=== PATIENT | male | born 1995 | race Caucasian/White ===

== ENCOUNTER 2020-12-24 12:11 | Emergency (ER) | payer BC, SELFPAY ==
[2020-12-24 12:23] VITALS: BP 121/72; PULSE 64; RESP 16; TEMP 37.6; O2SAT 100
--- NOTE | 2020-12-24 13:11 | ED.GENADULT ---
HPI - General Adult General Chief complaint: Unspecified Stated complaint: Brain fog Time Seen by Provider: 12/24/20 13:00 Source: patient and RN notes reviewed Mode of arrival: ambulatory Limitations: no limitations History of Present Illness HPI narrative: 25-year-old male presents with complaints of brain fog for the past 4-5 days. Leonel reports having a hard time thinking, focusing, and disassociation of thoughts. Lorazepam (last today) with some relief. ?Leonel reports being depressed without suicidal or homicidal ideation. Denies auditory or visual hallucination. ?Denies ill exposures. ?Denies abdominal constipation, diarrhea, nausea and vomiting. Tolerating intake well. Denies trauma to head, syncopal episodes, altered vision, altered speech, confusion, or seizure activity. ?Denies headache, numbness or tingling in extremities. Denies chest pain or dyspnea. ?Denies sweats, fever, or chills. Remains active. ?The patient reports he has not been diagnosed with COVID-19. The patient reports receiving two [employer] COVID-19 vaccines. ?The patient reports he is not waiting for the results of a COVID-19 lab test. ?The patient reports he does not have a new or worsening cough. ?The patient reports he does not have any rhinorrhea, congestion, loss of taste or smell. Denies recent traveling. Denies concerns for COVID-19 or exposures. ?At this time, the patient is not suspected of having COVID-19. Some parts of this dictation were generated by voice recognition software and may contain typographical and/or grammatical inaccuracies. Related Data Home Medications Medication Instructions Recorded Confirmed allopurinol 12/24/20 colchicine mg PO 12/24/20 lorazepam [Ativan] 12/24/20 meloxicam 7.5 mg PO DAILY 12/24/20 12/24/20 Allergies Allergy/AdvReac Type Severity Reaction Status Date / Time tramadol AdvReac Nausea and Verified 12/24/20 12:20 Vomiting Review of Systems Review of Systems: Narrative: CONSTITUTIONAL: Denies fever, chills, sweats. Complaints of hard time thinking, focusing, and disassociation of thoughts. EYES: Denies visual changes, redness, discharge. ENT: Denies rhinorrhea, congestion, sore throat, otalgia. CARDIOVASCULAR: Denies chest pain, palpitations, edema. RESPIRATORY: Denies dyspnea, wheezing, cough. GASTROINTESTINAL: Denies abdominal pain, diarrhea, nausea, vomiting. ? GENITOURINARY: Denies dysuria, hematuria, abnormal discharge. SKIN: Denies lesions, itching, drainage. MUSCULOSKELETAL: Denies acute back pain, joint pain, or myalgia. NEUROLOGIC: Denies numbness or focal weakness. PSYCHIATRIC: Complains of being worried about illnesses, stress, being depressed. Denies anxiety, suicidal, or homicidal ideation. All systems reviewed & are unremarkable except as noted in HPI and below. [facility] Past Medical History Medical History (Updated 12/25/20 @ 00:01 by Sara Meza) Asthma Childhood Gout Under the care of a neurologist to rule out neuropathy per Leonel Shoulder fracture, left Surgical History Surgical History (Updated 12/24/20 @ 13:19 by OSVALDO Baker) History of shoulder surgery Left shoulder Family History Family History (Updated 12/24/20 @ 13:19 by OSVALDO Baker) Father Diabetes mellitus Mother Parathyroid abnormality Grandparent Diabetes mellitus Social History Social History (Updated 12/31/20 @ 17:58 by OSVALDO Baker) Smoking packs per day: 1 Smoking cigarettes per day: 20.0 Years smoked: 7 Smoking pack-years: 7.00 Smoking status: Current some day smoker Tobacco type: cigarettes Second hand tobacco smoke exposure: No Alcohol intake: never Living arrangements: with family Occupation/Education: occupation Gender identity (if verbalized by the patient): Male Sexual Orientation (if Verbalized by the Patient): Straight or Heterosexual Comments At time of signature, agree with the nurse past medical, s
[2020-12-24 13:18] LABS: Glucose Point of Care 101 mg/dl (65-105)
== END 2020-12-24 13:38 | disposition home or self-care (01) ==
PROVIDERS: Emergency Provider Nurse Practitioner Family
DX: F41.9 Anxiety disorder, unspecified (principal); F17.210 Nicotine dependence, cigarettes, uncomplicated; M10.9 Gout, unspecified
CPT/HCPCS: 81003; 82948; 99212; G0463

== ENCOUNTER 2021-01-30 02:09 | Emergency (ER) | payer BC, SELFPAY ==
--- NOTE | ~2021-01-30 | XR_ITS ---
EXAMINATION: XR chest 1V portable DATE: 01/30/2021 03:04 INDICATION: Cough and fever TECHNIQUE: frontal view of the chest was obtained. COMPARISON: None FINDINGS: The lungs are clear with no focal airspace opacities, pulmonary edema, pleural effusion or pneumothor ax. The cardiomediastinal silhouette is normal. Visualized bones and soft tissues are unremarkable. IMPRESSION: 1. Normal chest radiograph. Reviewed, dictated and finalized at location A. IMPRESSION: 1. Normal chest radiograph.
[2021-01-30 02:16] VITALS: BP 131/88; PULSE 100; RESP 19; TEMP 37; O2SAT 98
--- NOTE | 2021-01-30 02:50 | ED.GENADULT ---
HPI - General Adult General Chief complaint: Fever Stated complaint: epigastric pain Time Seen by Provider: 01/30/21 02:33 History of Present Illness HPI narrative: Patient is 25-year-old gentleman who presents the emergency department with chief complaint of fever. The patient reports that he has been having a fever for the last week he has been vaccinated for Covid and has had a Covid test in the last week he was also checked for strep and he says this was negative. The patient reports that he had a little bit of a cough is also had some discomfort in his epigastric region. Patient states that it is worse whenever he coughs and improved with rest. Patient states that he was concerned because he still was running a fever and not feeling very well today the patient states he feels very thirsty even though he has been drinking plenty of fluids. Related Data Home Medications Medication Instructions Recorded Confirmed allopurinol 12/24/20 colchicine mg PO 12/24/20 lorazepam [Ativan] 12/24/20 meloxicam 7.5 mg PO DAILY 12/24/20 12/24/20 Allergies Allergy/AdvReac Type Severity Reaction Status Date / Time tramadol AdvReac Nausea and Verified 01/30/21 02:26 Vomiting Review of Systems Review of Systems: Narrative: A 10 system review of systems was completed on the patient and is negative except for what is stated in the HPI. Nursing and ancillary documentation was reviewed. [facility] Past Medical History Medical History Asthma Childhood Gout Under the care of a neurologist to rule out neuropathy per Leonel Shoulder fracture, left Surgical History Surgical History History of shoulder surgery Left shoulder Family History Family History Father Diabetes mellitus Mother Parathyroid abnormality Grandparent Diabetes mellitus Social History Social History Smoking packs per day: 1 Smoking cigarettes per day: 20.0 Years smoked: 7 Smoking pack-years: 7.00 Smoking status: Current some day smoker Tobacco type: cigarettes Second hand tobacco smoke exposure: No Alcohol intake: never Gender identity (if verbalized by the patient): Male Exam Narrative: Exam Narrative: GENERAL: Well-appearing, well-nourished, and in no acute distress. HEAD: Normocephalic, atraumatic. EYES: PERRLA and EOMI. ENT: Nares clear, no rhinorrhea or epistaxis. Mucous membranes moist. NECK: Supple. CHEST: Clear to auscultation. No respiratory distress. HEART: Regular rate and rhythm. No murmur heard. Normal peripheral pulses. ABDOMEN: Soft, nontender, nondistended, normal active bowel sounds. EXTREMITIES: Normal range of motion. No edema. SKIN: Warm, dry, no rash. NEURO: No focal deficits. Alert and oriented x3. PSYCH: Normal mood and affect. Course Vital Signs Vital signs: Vital Signs Temperature 37.0 C 01/30/21 02:16 Pulse Rate 100 01/30/21 02:16 Respiratory Rate 19 01/30/21 02:16 Blood Pressure 131/88 01/30/21 02:16 Pulse Oximetry 98 01/30/21 02:16 Temperature 37.0 C 01/30/21 02:16 Pulse Rate 76 01/30/21 04:51 Respiratory Rate 14 01/30/21 04:51 Blood Pressure 101/71 01/30/21 04:51 Pulse Oximetry 97 01/30/21 04:51 Medical Decision Making Vital Signs Vital Signs: Vital Signs Temperature 37.0 C 01/30/21 02:16 Pulse Rate 100 01/30/21 02:16 Respiratory Rate 19 01/30/21 02:16 Blood Pressure 131/88 01/30/21 02:16 Pulse Oximetry 98 01/30/21 02:16 Temperature 37.0 C 01/30/21 02:16 Pulse Rate 76 01/30/21 04:51 Respiratory Rate 14 01/30/21 04:51 Blood Pressure 101/71 01/30/21 04:51 Pulse Oximetry 97 01/30/21 04:51 Lab Data Result diagrams: 01/30/21 03:04 01/30/21 0
[2021-01-30] MEDS: SODIUM CHLORIDE 0.9% IV 1,000 ML 999 ML IV CONT (03:00)
[2021-01-30] MEDS: KETOROLAC 30 MG/ML VIAL (*BKC) IV PUSH (03:02)
[2021-01-30] MEDS: ONDANSETRON INJ 4 MG/2 ML VIAL IV PUSH (03:02)
[2021-01-30 03:23] LABS: Basophils Percent Auto 0.2 % (0.2-1.2); Eosinophils Percent Auto 0.2 % (0-4.4); Hematocrit 42.3 % (42.0-52.0); Hemoglobin 15.2 g/dL (14.0-18.0); Immature Granulocyte Absolute 0.05 K/mm3 (0.00-0.031); Immature Granulocyte Percent A 0.4 % (0-0.5); Lymphocytes Absolute Auto 1.06 K/mm3 (0.9-3.2); Lymphocytes Percent Auto 8.6 % (18.3-44.2); Mean Corpuscular HGB Conc 35.9 g/dl (32-36); Mean Corpuscular Hemoglobin 30.1 pg (26-34); Mean Corpuscular Volume 83.8 fl (80-100); Mean Platelet Volume 9.2 fl (7.4-10.4); Monocytes Absolute Auto 1.1 K/mm3 (0.1-0.6); Monocytes Percent Auto 9.1 % (2.6-8.5); Neutrophils Percent Auto 81.5 % (45.5-73.1); Platelet Count Result 222 k/mm3 (150-375); Red Blood Count 5.05 M/mm3 (4.6-6.20); Red Cell Distribution Width 11.9 % (11.5-14.5); White Blood Count 12.3 K/mm3 (4.5-10.0)
[2021-01-30 03:34] LABS: Alanine Aminotransferase 46 U/L (4-50); Albumin Level 4.5 g/dL (3.5-5.1); Alkaline Phosphatase 44 U/L (38-126); Anion Gap 11 mmol/L (8-16); Aspartate Amino Transferase 50 U/L (17-59); Bilirubin,Total 1.2 mg/dL (0.2-1.3); Blood Urea Nitrogen 7 mg/dL (9-20); Calcium 9.2 mg/dL (8.4-10.2); Carbon Dioxide 24 mmol/L (22-30); Chloride 102 mmol/L (98-107); Estimated CRCL calculation 207 ml/min; Estimated Glomerular Filt Rate > 60; Glucose 152 mg/dL (65-110); Lactic Acid Reflex 1.4 mmol/L (0.7-2.1); Potassium 3.1 mmol/L (3.4-5.0); Sodium 137 mmol/L (137-145)
[2021-01-30 03:38] LABS: CRP 1.9 mg/dL (<1.0)
[2021-01-30 04:33] LABS: Add Urine Microscopic? YES; Appearance Urine Clear (Clear); Bacteria Urine Trace /hpf; Bilirubin Urine Negative (Negative); Blood Urine Negative (Negative); Color Urine Yellow (Yellow); Glucose Urine UA Negative (Negative); Ketones Urine Negative (Negative); Leukocyte Esterase Ur Negative LEU/UL (Negative); Mucus Urine Rare /lpf; Nitrate Urine Negative (Negative); Protein Urine Negative (Negative); Specific Grav Ur 1.018 (1.001-1.035); Squamous Epithelial Cell Urine Rare /hpf (Few); WBC Urine 0-3 /hpf
[2021-01-30 04:51] VITALS: BP 101/71; PULSE 76; RESP 14; O2SAT 97
[2021-01-30 05:33] VITALS: BP 107/68; PULSE 70; RESP 14; O2SAT 97
== END 2021-01-30 05:38 | disposition home or self-care (01) ==
PROVIDERS: Emergency Provider Emergency Medicine
DX: B34.9 Viral infection, unspecified (principal); J45.909 Unspecified asthma, uncomplicated; M10.9 Gout, unspecified; F17.210 Nicotine dependence, cigarettes, uncomplicated
CPT/HCPCS: 36415; 71045; 80053; 81001; 83605; 85025; 86140; 87081; 87804; 87880; 96361; 96374; 96375; 99284; J1885; J2405; J7030

== ENCOUNTER → 2021-04-12 09:15 | Outpatient (CLI) | payer BC, SELFPAY ==
--- NOTE | ~2021-04-12 | US_ITS ---
US scrotum doppler INDICATION: Left testicular pain and swelling TECHNIQUE: Testicular sonogram utilizing grayscale and color Doppler FINDINGS: The testes are normal in size and appearance. No focal lesions are seen. The right testes measures 4.5 x 2.4 x 3.2 cm centimeters, and the left testis measures 4.2 x 2.6 x 3 cm cm. There is n ormal vascular flow to both testes. There is a 2 mm left epididymal cyst. There are trace hydroceles. There is a left varicocele. IMPRESSION: 1. Left varicocele. 2: Small hydroceles. Reviewed, dictated and finalized at location A.
== END ==
PROVIDERS: Visit Provider Family Medicine
DX: N50.819 Testicular pain, unspecified (principal); I08.3 Combined rheumatic disorders of mitral, aortic and tricuspid valves; N43.3 Hydrocele, unspecified
CPT/HCPCS: 76870; 93976

== ENCOUNTER 2021-10-10 08:22 | Emergency (ER) | payer BC, SELFPAY ==
[2021-10-10] VITALS (7 sets, daily range): BP systolic 112–147; BP diastolic 70–85; PULSE 81–101; RESP 16–22; TEMP 36.7–38; O2SAT 98–100
--- NOTE | ~2021-10-10 | XR_ITS ---
EXAMINATION: XR chest 1V portable EXAM DATE: 10/10/2021 08:43 INDICATION: Chest pain, COVID. TECHNIQUE: Portable AP frontal chest x-ray was obtained. Comparison is made to prior examination from 01/30/2021. FINDINGS: The lungs are clear. There are no pleural effusions. The cardiomediastinal silhouette is within normal limits. There is no pneumothorax suspected. The bones and soft tissues are unremarkab le. IMPRESSION: No acute cardiopulmonary findings. Reviewed, dictated and finalized at location D.
--- NOTE | ~2021-10-10 | CT_ITS ---
EXAMINATION: CTA chest PE protocol DATE: 10/10/2021 09:50 INDICATION: Chest pain and COVID TECHNIQUE: Computed tomography (CT) pulmonary angiogram of the chest was performed with 100 mL Omnipa que-350 intravenous contrast. Additional 3D reconstructions utilizing coronal maximum intensity proje ction (MIP) were performed. Automated exposure control and iterative reconstruction technique were em ployed. The dose-length product was 302.91 mGy-cm. COMPARISON: None FINDINGS: There is severe stenosis of the left subclavian artery were passed between the clavicle and left firs t rib with injected contrast extending through numerous chest wall and paraspinal collaterals. This l ikely contributes to the still good but suboptimal contrast opacification of the of the pulmonary art eries. There is mild streak artifact from dense contrast in the superior vena cava and right atrium. Mild scattered respiratory motion artifact which does not significantly limit evaluation. No pulmonar y embolism. No pneumonia, pulmonary edema or other pulmonary infiltrates. No pleural effusion or pneu mothorax. Heart size is normal. No pericardial effusion. Thoracic aorta is normal in caliber with no dissection. There is a triangular configuration of mixed fat and soft tissue density in the anterior mediastinum consistent with small amount of residual thymic tissue. No pathologically enlarged thorac ic lymphadenopathy. Visualized upper abdomen and bones are unremarkable. IMPRESSION: 1. No pulmonary embolism or other acute cardiopulmonary disease. 2. Severe stenosis of the left subclavian artery secondary to extrinsic compression from the clavicle and anterior first rib with the arms in the elevated position results in chest wall and paraspinal c ollaterals. Reviewed, dictated and finalized at location A. IMPRESSION: 1. No pulmonary embolism or other acute cardiopulmonary disease. 2. Severe stenosis of the left subclavian artery secondary to extrinsic jossue deric from the clavicle and anterior first rib with the arms in the elevated pos ition results in chest wall and paraspinal collaterals.
--- NOTE | 2021-10-10 08:26 | ECG_ITS ---
Measurements Intervals [place] Rate: 86 P: 66 [place]: 150 QRS: 72 QRSD: 90 T: 44 QT: 303 QTc: 363 Interpretive Statements SINUS RHYTHM WITH SINUS ARRHYTHMIA BORDERLINE ECG NO PREVIOUS ECG AVAILABLE FOR COMPARISON Electronically Signed On 10-10-2021 17:14:28 CDT by Roberto Vargas M.D.
[2021-10-10] MEDS: ASPIRIN 81 MG CHEWABLE TABLET 324 MG PO (08:54)
[2021-10-10 08:55] LABS: Basophils Percent Auto 0.1 % (0.2-1.2); Hematocrit 40.5 % (42.0-52.0); Hemoglobin 14.3 g/dL (14.0-18.0); Immature Granulocyte Absolute 0.04 K/mm3 (0.00-0.031); Immature Granulocyte Percent A 0.4 % (0-0.5); Lymphocytes Absolute Auto 1.63 K/mm3 (0.9-3.2); Lymphocytes Percent Auto 15.1 % (18.3-44.2); Mean Corpuscular HGB Conc 35.3 g/dl (32-36); Mean Corpuscular Volume 87.9 fl (80-100); Mean Platelet Volume 9.3 fl (7.4-10.4); Monocytes Absolute Auto 1.2 K/mm3 (0.1-0.6); Monocytes Percent Auto 10.8 % (2.6-8.5); Neutrophils Percent Auto 73.6 % (45.5-73.1); Platelet Count Result 192 k/mm3 (150-375); Red Blood Count 4.61 M/mm3 (4.6-6.20); Red Cell Distribution Width 12.1 % (11.5-14.5); White Blood Count 10.8 K/mm3 (4.5-10.0)
[2021-10-10 09:10] LABS: Partial Thromboplastin Time 29.2 SECONDS (22.3-36.8); Prothrombin Time 12.9 Seconds (11.1-14.7)
[2021-10-10 09:12] LABS: Alanine Aminotransferase 29 U/L (4-50); Albumin Level 4.5 g/dL (3.5-5.1); Alkaline Phosphatase 36 U/L (38-126); Anion Gap 10 mmol/L (8-16); Aspartate Amino Transferase 28 U/L (17-59); Bilirubin,Total 0.9 mg/dL (0.2-1.3); Blood Urea Nitrogen 9 mg/dL (9-20); Calcium 8.6 mg/dL (8.4-10.2); Carbon Dioxide 25 mmol/L (22-30); Chloride 104 mmol/L (98-107); Estimated CRCL calculation 173 ml/min; Estimated Glomerular Filt Rate > 60; Glucose 115 mg/dL (65-110); Lipase 85 U/L (23-300); Potassium 3.6 mmol/L (3.4-5.0); Sodium 139 mmol/L (137-145)
[2021-10-10 09:13] LABS: D Dimer 0.44 ug/mL (<0.48)
[2021-10-10 09:23] LABS: Troponin I < 0.012 ng/mL (0.000-0.034)
--- NOTE | 2021-10-10 09:26 | ED.CHESTPAIN ---
HPI - Chest Pain General Chief Complaint: Chest Pain Stated Complaint: I have COVID Time Seen by Provider: 10/10/21 08:28 Source: RN notes reviewed History of Present Illness HPI narrative: Patient presents emergency department from home for chest pain. Patient states he was diagnosed with COVID-19 approximately 2 days ago with symptoms starting 3 days ago. He states he has had low-grade fever as well as sore throat rhinorrhea and a cough this been nonproductive he denies any abdominal pain nausea vomiting or any other symptoms. States he developed left-sided chest pain this morning and came to the emergency department for further evaluation. Patient states pain is worse with deep inspiration and coughing Related Data Home Medications Medication Instructions Recorded Confirmed meloxicam 7.5 mg PO DAILY 12/24/20 12/24/20 colchicine 0.6 mg tablet 0.6 mg PO DAILY 04/01/21 lorazepam 1 mg tablet PO BID-TID tablet 04/01/21 Allergies Allergy/AdvReac Type Severity Reaction Status Date / Time No Known Allergies Allergy Verified 10/10/21 09:36 Review of Systems Review of Systems: Gen.: Reports objective low-grade fevers Eyes: Denies eye pain or visual change ENT: Reports rhinorrhea and sore throat Respiratory: Reports shortness of breath and cough CV: Reports left-sided chest pain GI: Denies abdominal pain nausea, emesis or diarrhea Musculoskeletal: Denies back pain or muscle pain Neuro: Denies numbness, tingling, weakness or focal weakness Skin: Denies rash Except as documented, all other systems reviewed and negative PMFSH Past Medical History Medical History Anxiety Asthma Childhood Gout Under the care of a neurologist to rule out neuropathy per Leonel Shoulder fracture, left Surgical History Surgical History History of shoulder surgery Left shoulder Family History Family History Father Diabetes mellitus Depression Anxiety Heart disease Mother Parathyroid abnormality Grandparent Diabetes mellitus Sibling Depression Anxiety Social History Social History Smoking packs per day: 0 Smoking cigarettes per day: 0.0 Years smoked: 7 Smoking pack-years: 0.00 Tobacco type: cigarettes Second hand tobacco smoke exposure: No Alcohol intake: never Substance use: never Additional occupation/education comments: [employer] Gender identity (if verbalized by the patient): Male Sexual Orientation (if Verbalized by the Patient): Straight or Heterosexual Exam Narrative: APPEARANCE: No acute distress, nontoxic, resting in bed EYES: EOMI HEENT: Normocephalic, atraumatic, OMM RESPIRATORY: No respiratory distress Clear to auscultation bilaterally with no rhonchi wheezing or rales. CARDIOVASCULAR: Regular rate and rhythm without murmurs rubs or gallops. Chest: Tender palpation left anterior chest wall pain increased with deep inspiration ABDOMINAL: Soft, nontender, nondistended, no rebound or guarding MUSCULOSKELETAl: Moves all extremities. No clubbing, cyanosis or edema. NEURO: Awake and alert. Following commands, speech normal, no focal deficits SKIN:: Warm, dry. No rashes lesions or abrasions PSYCHIATRIC: Normal affect/mood, Course Course Emergency Course: Following CT scan discussed with patient is left-sided subclavian stenosis with hands above the head bilateral radial pulses are 2+ he states he does notice of his hands over his having sleeping he has some tingling in that hand he had a AC separation grade 4 that had surgery on it in the past and I question of whether this is secondary to that he is asymptomatic at rest will have him follow-up with his PCP I did discuss this with the patient Discussed with patient results of workup and diagnosis. Discussed
[2021-10-10] MEDS: KETOROLAC 30 MG/ML VIAL (*BKC) IV PUSH (09:40)
[2021-10-10] MEDS: SODIUM CHLORIDE 0.9% IV 1,000 ML 999 ML IV CONT (09:40)
[2021-10-10 11:55] LABS: Troponin I < 0.012 ng/mL (0.000-0.034)
[2021-10-10] MEDS: ACETAMINOPHEN 500 MG TABLET 1000 MG PO (12:23)
== END 2021-10-10 12:35 | disposition home or self-care (01) ==
PROVIDERS: Emergency Provider Emergency Medicine
DX: U07.1 COVID-19 (principal); R07.89 Other chest pain; F41.9 Anxiety disorder, unspecified; J45.909 Unspecified asthma, uncomplicated; M10.9 Gout, unspecified; Z87.891 Personal history of nicotine dependence; I70.8 Atherosclerosis of other arteries
CPT/HCPCS: 36415; 71045; 71275; 80053; 83690; 84484; 85025; 85380; 85610; 85730; 93005; 96361; 96374; 99284; A9270; J1885; J7030; Q9967